=== PATIENT | female | born 1940 | race Caucasian/White ===

== ENCOUNTER 2019-12-28 07:54 | Inpatient (IN) | payer MEDICARE, OTHER, SELFPAY ==
[2019-12-28] VITALS (14 sets, daily range): BP systolic 102–127; BP diastolic 68–93; PULSE 68–110; RESP 19–29; TEMP 36.5–36.7; O2SAT 92–96; BMI 18.6
--- NOTE | ~2019-12-28 | XR_ITS ---
EXAMINATION: XR chest 2V DATE: 12/28/2019 08:50 INDICATION: Cough. Dyspnea. TECHNIQUE: Frontal and lateral views of the chest were obtained. COMPARISON: None. FINDINGS: The patient is rotated to her right. There are airspace opacities at left lung base. There is a small left pleural effusion. No pneumothorax. The heart size is normal. A burst fracture and a c ompression fracture of mid thoracic spine are likely chronic. IMPRESSION: 1. Airspace opacities at left lung base, consistent with atelectasis versus pneumonia. 2. Small left pleural effusion. Reviewed, dictated and finalized at location [facility] IMPRESSION: 1. Airspace opacities at left lung base, consistent with atelectasis versus pne umonia. 2. Small left pleural effusion.
--- NOTE | ~2019-12-28 | XR_ITS ---
EXAMINATION: XR chest 2V EXAM DATE: 01/02/2020 16:25 INDICATION: Follow-up pneumonia, respiratory failure. TECHNIQUE: Frontal and lateral projections of the chest obtained and reviewed. Comparison is made to prior examination from 12/28/2019. FINDINGS: Moderate-sized gastroesophageal hiatal hernia. There is adjacent atelectasis. Left basilar pneumonia also possible. There is moderate left pleural effusion. Slight interval increase in the ple ural effusion compared to prior study. Mild cardiomegaly and mild hyperinflation. No pneumothorax. Th ere is aortic arterial sclerosis. The bones are osteopenic. There are bony degenerative changes. Mil d to moderate mid thoracic compression fractures which appear chronic. IMPRESSION: 1. Moderate left pleural effusion, slight interval increase, adjacent atelectasis and possibly pneum onia. 2. Moderate hiatal hernia. Reviewed, dictated and finalized at location A. NESS INFORMATION CONSULTANT IMPRESSION: 1. Moderate left pleural effusion, slight interval increase, adjacent atelecta sis and possibly pneumonia. 2. Moderate hiatal hernia.
--- NOTE | 2019-12-28 07:59 | ED.SOB ---
HPI - SOB/Dyspnea General Chief Complaint: Shortness of Breath/Dyspnea Stated Complaint: sob Time Seen by Provider: 12/28/19 08:02 Source: patient Mode of arrival: EMS Limitations: no limitations History of Present Illness HPI Narrative: A 79 y/o female presents to the ED, via EMS, with c/o SOB. Pt states that the SOB started this morning and has been constant since. She has a PMHx of lung cancer and COPD and notes that she has had similar episodes of SOB. Pt is on home oxygen as needed. She reports congestion, but denies cough, N/V/D, ABD pain, fever, weakness, fatigue, and CP. Pt denies any use of steroids. She is currently on Eliquis for AFib and is diagnosed with dementia. MD elicited complaint: shortness of breath Pertinent past history: COPD and other (Lung cancer) Onset (ago): hour(s) (This morning) Timing: constant Severity: similar to previous episodes Known history of: COPD and other (Lung cancer) Associated symptoms: chest congestion Treatment prior to arrival: oxygen Related Data Home Medications Medication Instructions Recorded Confirmed albuterol sulfate 12/28/19 apixaban [Eliquis] mg 12/28/19 atorvastatin 10 mg PO DAILY 12/28/19 budesonide-formoterol [Symbicort] 2 puff INHALATION Q12H 12/28/19 buspirone mg 12/28/19 calcium carbonate-vitamin D3 tablet PO 12/28/19 [Calcium 600 + D(3)] cholecalciferol (vitamin D3) unit 12/28/19 [Vitamin D3] famotidine 12/28/19 fluticasone propionate INTRANASAL 12/28/19 guaifenesin mg 12/28/19 ipratropium-albuterol ml INHALATION 12/28/19 levothyroxine 12/28/19 melatonin mg 12/28/19 metoprolol tartrate 12.5 12/28/19 montelukast mg 12/28/19 multivit with min-folic acid mg PO 12/28/19 [Adult One Daily Multivitamin] quetiapine 12/28/19 simvastatin mg 12/28/19 Allergies Allergy/AdvReac Type Severity Reaction Status Date / Time alendronate sodium Allergy Unknown Verified 12/28/19 08:08 [From Fosamax] aspirin Allergy Unknown Verified 12/28/19 08:08 flunisolide [From Aerobid] Allergy Unknown Verified 12/28/19 08:08 levofloxacin Allergy Unknown Verified 12/28/19 08:08 Penicillins Allergy Unknown Verified 12/28/19 08:08 Review of Systems Review of Systems: Narrative: CONSTITUTIONAL: Denies fever ENT: Denies rhinorrhea, sore throat, or otalgia. Reports congestion. CARDIOVASCULAR: Denies chest pain, palpitations, or edema. RESPIRATORY: Denies cough. Reports dyspnea. GASTROINTESTINAL: Denies abdominal pain, nausea, vomiting, or diarrhea. GENITOURINARY: Denies dysuria or hematuria. SKIN: Denies rash or itching. MUSCULOSKELETAL: Denies back pain, joint pain, or myalgia. NEUROLOGIC: Denies headache, numbness, or weakness. Patient has dementia, able to provide some history and review of systems. All systems reviewed & are unremarkable except as noted in HPI and below PMFSH Past Medical History Medical History (Updated 12/28/19 @ 09:34 by Vianney Pace MD) Afib COPD (chronic obstructive pulmonary disease) Dementia Hypothyroid Lung cancer Osteoporosis Surgical History Surgical History (Updated 12/28/19 @ 08:20 by Yessi Mcdonald) Surgical history unknown Social History Social History (Updated 12/28/19 @ 08:21 by Yessi Mcdonald) Smoking status: Unknown if ever smoked Gender identity (if verbalized by the patient): Female Exam Narrative: Exam Narrative: GENERAL: Thin, awake, alert HEAD: Normocephalic, atraumatic. EYES: PERRLA and EOMI. ENT: Nares clear, no rhinorrhea or epistaxis. Mucous membranes dry NECK: Supple. CHEST: Tachypneic. Use of accessory muscles to breathe. Decreased breath sounds in the bilateral lower lobes. Very course breath sounds on left. Moderate respiratory distress. HEART tachycardic rate, regular rhythm.. No murmur heard. Normal peripheral pulses. ABDOMEN: Soft, nontender, nondistended, normal active bowel sounds. EXTREMITIES: Normal range of motion. No edema. SKIN: Warm, dry, pale NEURO: No focal def
--- NOTE | 2019-12-28 08:03 | ECG_ITS ---
Measurements Intervals [place] Rate: 101 P: 88 KS: 148 QRS: 93 QRSD: 86 T: 50 QT: 355 QTc: 461 Interpretive Statements SINUS TACHYCARDIA RIGHT AXIS DEVIATION INCOMPLETE RIGHT BUNDLE BRANCH BLOCK DELAYED PRECORDIAL R/S TRANSITION BORDERLINE T WAVE ABNORMALITY- ANTERIOR LEADS BORDERLINE ECG Electronically Signed On 12-28-2019 9:17:36 LAST CODE STRIPER by Jeremy Samuel D.O.
--- NOTE | 2019-12-28 08:03 | PC.NURSE ---
Placed on 2 Li NC at this time for pulse ox 90% on room air.
[2019-12-28 08:22] LABS: Basophils Absolute Auto 0.1 K/mm3 (0.0-0.1); Basophils Percent Auto 1.5 % (0.2-1.2); Eosinophils Absolute Auto 2.4 K/mm3 (0-0.3); Eosinophils Percent Auto 32.5 % (0-4.4); Hematocrit 37.6 % (37.0-47.0); Hemoglobin 12.3 g/dL (12.0-15.0); Immature Granulocyte Absolute 0.02 K/mm3 (0.00-0.031); Immature Granulocyte Percent A 0.3 % (0-0.5); Lymphocytes Absolute Auto 1.41 K/mm3 (0.9-3.2); Lymphocytes Percent Auto 19.2 % (18.3-44.2); Mean Corpuscular HGB Conc 32.7 g/dl (32-36); Mean Corpuscular Hemoglobin 33.2 pg (26-34); Mean Corpuscular Volume 101.3 fl (80-100); Mean Platelet Volume 11.2 fl (7.4-10.4); Monocytes Absolute Auto 0.9 K/mm3 (0.1-0.6); Monocytes Percent Auto 11.7 % (2.6-8.5); Neutrophils Absolute Auto 2.6 K/mm3 (1.3-6.7); Neutrophils Percent Auto 34.8 % (45.5-73.1); Platelet Count Result 191 k/mm3 (150-375); Red Blood Count 3.71 M/mm3 (4.2-5.4); Red Cell Distribution Width 13.6 % (11.5-14.5); White Blood Count 7.4 K/mm3 (4.5-10.0)
[2019-12-28] MEDS: Please add drug allergy info to patient profile. 1 EACH XX (08:24)
[2019-12-28] MEDS: methylPREDNISolone SOD SUCC 125 MG VIAL IV PUSH (08:27)
[2019-12-28] MEDS: SODIUM CHLORIDE 0.9% IV 1,000 ML 999 ML IV CONT ×2 (08:28→09:44)
[2019-12-28] MEDS: ALBUTEROL SULFATE NEB 2.5 MG/0.5 ML INH 5 MG INHALATION ×3 (08:31→22:49)
[2019-12-28 08:32] LABS: Blood Urea Nitrogen 22 mg/dL (7-17); Calcium 9.2 mg/dL (8.4-10.2); Carbon Dioxide 28 mmol/L (22-30); Chloride 106 mmol/L (98-107); Estimated Glomerular Filt Rate > 60; Glucose 97 mg/dL (65-105); Sodium 140 mmol/L (137-145)
[2019-12-28] MEDS: IPRATROPIUM BR 0.02% INH SOLN 0.5 MG/2.5 ML VIAL 1 MG INHALATION (08:32)
[2019-12-28 08:36] LABS: Alveolar/Arterial O2 Gradient 85.8 mmHg; Base Excess ABG 0.4 mEq/l (+/-2.0); Carboxyhemoglobin 0.2 % THb (0-2.0); Device NASAL CANNULA; Fractional Inspired Oxygen 28 %; HCO3 ABG 24.4 mEq/l (22.0-26.0); Methemoglobin ABG 0.1 %THb (0-1.5); Oxygen Content ABG 16.4 %vol (16.0-22.0); Oxygen Saturation ABG 94.6 % (95.0-100.0); Oxyhemoglobin 93.3 % THb (90.0-100.0); PCO2 ABG 37.2 mmHg (35.0-45.0); PO2 ABG 69.9 mmHg (80.0-100.0); Reduced Hemoglobin 6.4 %THb (0-5.0); Site Drawn RIGHT BRACHIAL; Total Hemoglobin 12.5 g/dL (12.0-18.0); pH ABG 7.435 (7.350-7.450)
[2019-12-28 10:02] LABS: Lactic Acid Reflex 1.1 mmol/L (0.7-2.1)
--- NOTE | 2019-12-28 11:10 | ADMGEN ---
This patient, Lana Evans, was admitted to [facility] Surg Room 332-01. Patient/family oriented to hospital policies and general routines including ID bracelet, bed and alarms, visiting hours, pain management, procedures, bathroom and other care routines, personal items, smoking policy, room service/diet, and visiting hours. Valuables list has been completed. Information on how to activate the Rapid Response Team has been discussed. Patient/Family are encouraged to report perceived risks to care and to ask questions if they do not understand what they are told or what they should do.
--- NOTE | 2019-12-28 14:39 | PM.IMHP ---
H&P: HPI History of Present Illness Chief complaint: COPD exacerbation/Pneumonia Narrative: Lana Evans is a 79 year old female who resides at [facility]. The patient has a history of COPD. She has dementia and has difficulty answering questions. The patient tells me she uses oxygen p.r.n. it was ordered at the correction 2-3 liters/minute per nasal cannula p.r.n. to keep sats greater than 90%. The patient stated that she did use nebulizers and inhalers as prescribed. However the patient is a very poor historian. It looks like on 12/03/2019 the patient was prescribed a Z-Ha and ordered DuoNebs. Most of the information was obtained from her records. Patient is a DNR with [facility] treatment. According to ER records the patient has a history of lung cancer. She also has AFib and is on Eliquis. She denies any fevers chills. She had shortness of breath that started since this morning. Patient has oxygen on at 3 L per nasal cannula. Patient was started on azithromycin Rocephin. She was given IV fluids. She was given neb treatments in the emergency room. Her white count is normal. Patient's chest x-ray was read as airspace opacities at the left lung base, consistent with atelectasis versus pneumonia. Small left pleural effusion. Upon reviewing her chest x-ray myself it looks like there is some consolidation in the mid to lower lobe on the right. However this could possibly be due to her history cancers well possibly scarring. the consolidation a left looks very minimal. She is without fever chills and no white count. Dated of service 12/28/2019. Review of Systems Review of Systems: Narrative: The patient has a history of dementia. Her memory is poor. She can't even recall that she is at [facility]. She cannot recall when her treatment for lung cancer was. She stated that she receive treatment [facility] in [place] because that is where she lived. Patient does agree that she is short of breath. She agrees that she does have COPD and wears oxygen. She recalls using nebulizer treatments at times but does not recall using it today. All systems reviewed & are unremarkable except as noted in HPI and below Constitutional: Constitutional: Reports as per HPI and Reports no additional constitutional complaints Eyes: Eyes: Reports as per HPI and Reports no additional eye complaints ENT: Reports system reviewed and no additional complaints, except as documented and Reports Normal hearing present Cardiovascular: Cardiovascular: Reports no additional cardiovascular complaints Respiratory: Respiratory: Reports no additional respiratory complaints and Reports no additional respiratory complaints Gastrointestinal: Gastrointestinal: Reports as per HPI and Reports no additional gastrointestinal complaints Musculoskeletal: Musculoskeletal: Reports no additional musculoskeletal complaints Integumentary/Breasts: Skin/Breast: Reports system reviewed and no additional complaints, except as docu and Reports as per HPI Neurologic: Reports system reviewed and no additional complaints, except as documented, Reports as per HPI and Reports Normal hearing present Psychiatric: Psychiatric: Reports no additional psychiatric complaints and Reports as per HPI Endocrine: Endocrine: Reports no additional endocrine complaints Hematologic/Lymphatic: Hematologic/Lymphatic: Reports no additional hematologic/lymphatic complaints Allergic/Immunologic: Allergic/Immunologic: Reports no additional allergic/immunologic complaints PMFSH Past Medical History Medical History (Updated 12/28/19 @ 14:59 by Debbie Hyman NP) Afib Anxiety COPD (chronic obstructive pulmonary disease) Dementia Hyperlipidemia Hypothyroid Lung cancer Osteoporosis Surgical History Surgical History (Updated 12/28/19 @ 14:48 by Debbie Hyman NP) H/O bilateral cataract extraction Family History Family History (Updated 12/28/19
[2019-12-28] MEDS: methylPREDNISolone SOD SUCC 125 MG VIAL 60 MG IV PUSH ×2 (15:31→19:17)
[2019-12-28] MEDS: IPRATROPIUM BR 0.02% INH SOLN 0.5 MG/2.5 ML VIAL INHALATION ×2 (15:39→22:49)
[2019-12-28] MEDS: ATORVASTATIN 10 MG TABLET PO (15:41)
[2019-12-28] MEDS: APIXABAN 5 MG TABLET PO (16:22)
[2019-12-28] MEDS: LEVOTHYROXINE SODIUM 112 MCG TABLET PO (17:14)
[2019-12-28] MEDS: FAMOTIDINE 20 MG TABLET PO (17:14)
[2019-12-28] MEDS: METOPROLOL TARTRATE 12.5 MG TABLET PO (17:14)
[2019-12-28] MEDS: QUEtiapine FUMARATE 25 MG TABLET PO (17:15)
[2019-12-28] MEDS: GUAIFENESIN/DEXTROMETHORPHAN 10 ML UDC PO (17:15)
[2019-12-28] MEDS: MELATONIN 3 MG TABLET PO (21:57)
[2019-12-28] MEDS: LORAZEPAM INJ 2 MG/ML VIAL 0.5 MG IV PUSH (22:02)
[2019-12-29] VITALS (11 sets, daily range): BP systolic 92–139; BP diastolic 50–76; PULSE 79–115; RESP 18–22; TEMP 36.8–37.2; O2SAT 96–98
[2019-12-29] MEDS: methylPREDNISolone SOD SUCC 125 MG VIAL 60 MG IV PUSH ×4 (00:15→16:35)
[2019-12-29] MEDS: ALBUTEROL SULFATE NEB 2.5 MG/0.5 ML INH 5 MG INHALATION ×3 (02:10→15:36)
[2019-12-29] MEDS: IPRATROPIUM BR 0.02% INH SOLN 0.5 MG/2.5 ML VIAL INHALATION ×3 (02:10→15:36)
--- NOTE | 2019-12-29 06:00 | ECG_ITS ---
Measurements Intervals [place] Rate: 100 P: 78 GA: 146 QRS: 82 QRSD: 89 T: 44 QT: 345 QTc: 445 Interpretive Statements SINUS TACHYCARDIA VENTRICULAR PREMATURE COMPLEX DELAYED PRECORDIAL R/S TRANSITION BORDERLINE T WAVE ABNORMALITY- ANTERIOR LEADS BASELINE ARTIFACT- V4 BORDERLINE ECG Electronically Signed On 12-29-2019 9:30:34 SALES REPRESENTATIVE [employer] by Jeremy Samuel D.O.
[2019-12-29 06:22] LABS: Basophils Percent Auto 0.1 % (0.2-1.2); Hematocrit 32.4 % (37.0-47.0); Hemoglobin 10.8 g/dL (12.0-15.0); Immature Granulocyte Absolute 0.04 K/mm3 (0.00-0.031); Immature Granulocyte Percent A 0.4 % (0-0.5); Lymphocytes Percent Auto 9.2 % (18.3-44.2); Mean Corpuscular HGB Conc 33.3 g/dl (32-36); Mean Corpuscular Hemoglobin 33.2 pg (26-34); Mean Corpuscular Volume 99.7 fl (80-100); Mean Platelet Volume 11.6 fl (7.4-10.4); Monocytes Absolute Auto 0.6 K/mm3 (0.1-0.6); Monocytes Percent Auto 6.6 % (2.6-8.5); Neutrophils Absolute Auto 8.2 K/mm3 (1.3-6.7); Neutrophils Percent Auto 83.7 % (45.5-73.1); Platelet Count Result 162 k/mm3 (150-375); Red Blood Count 3.25 M/mm3 (4.2-5.4); Red Cell Distribution Width 13.7 % (11.5-14.5); White Blood Count 9.7 K/mm3 (4.5-10.0)
[2019-12-29 06:42] LABS: Alanine Aminotransferase 17 U/L (4-35); Albumin Level 3.2 g/dL (3.5-5.1); Alkaline Phosphatase 62 U/L (38-126); Aspartate Amino Transferase 23 U/L (14-36); Bilirubin,Total 0.1 mg/dL (0.2-1.3); Blood Urea Nitrogen 18 mg/dL (7-17); Calcium 8.6 mg/dL (8.4-10.2); Carbon Dioxide 24 mmol/L (22-30); Chloride 104 mmol/L (98-107); Estimated CRCL calculation 53 ml/min; Estimated Glomerular Filt Rate > 60; Glucose 126 mg/dL (65-105); Potassium 4.2 mmol/L (3.4-5.0); Sodium 139 mmol/L (137-145)
[2019-12-29] MEDS: LEVOTHYROXINE SODIUM 112 MCG TABLET PO (07:30)
[2019-12-29] MEDS: THERAPEUTIC MULTIVITAMINS/MINERALS TAB (*BKC) 1 TABLET PO (09:22)
[2019-12-29] MEDS: QUEtiapine FUMARATE 25 MG TABLET PO ×2 (09:22→16:33)
[2019-12-29] MEDS: MONTELUKAST SODIUM 10 MG TABLET PO (09:22)
[2019-12-29] MEDS: FAMOTIDINE 20 MG TABLET PO ×2 (09:22→16:33)
[2019-12-29] MEDS: METOPROLOL TARTRATE 12.5 MG TABLET PO ×2 (09:22→16:33)
[2019-12-29] MEDS: SIMETHICONE 125 MG CHEW TAB 250 MG PO (09:22)
[2019-12-29] MEDS: ATORVASTATIN 10 MG TABLET PO (09:22)
[2019-12-29] MEDS: FLUTICASONE PROPIONATE 0.05% NA SPR 16 GM BTL (*BKC) 1 SPRAY NASAL (09:22)
[2019-12-29] MEDS: APIXABAN 5 MG TABLET PO ×2 (09:22→16:32)
[2019-12-29] MEDS: CHOLECALCIFEROL 1,000 UNIT TABLET 8000 UNITS PO (09:23)
--- NOTE | 2019-12-29 15:33 | PCCCNOTE ---
On 12/29/19, the student, [ Arely Mullins], provided care and completed [facility] documentation on this patient. I have reviewed the student's documentation and agree with the findings.
[2019-12-29] MEDS: LORAZEPAM 0.5 MG TABLET PO (16:31)
[2019-12-29] MEDS: busPIRone HCL 2.5 MG TABLET PO (16:32)
[2019-12-29] MEDS: busPIRone HCL 5 MG TABLET PO (16:32)
--- NOTE | 2019-12-29 17:53 | PM.IMPN ---
Progress Note: A&P Assessment and Plan (1) Respiratory failure: Qualifiers: Chronicity: acute Respiratory failure complication: hypoxia Qualified Code(s): J96.01 - Acute respiratory failure with hypoxia Code(s): J96.90 - Respiratory failure, unspecified, unspecified whether with hypoxia or hypercapnia Status: Acute Assessment and Plan: acute on chronic. The patient [facility] Today she is on it consistently at 4 L per nasal cannula. Pulse ox was 96%. The patient is being treated for pneumonia as well COPD. She is currently receiving steroids and nebulizer treatments. Check BNP also.. (2) Pneumonia: Qualifiers: Laterality: bilateral Lung location: unspecified part of lung Pneumonia type: due to unspecified organism Qualified Code(s): J18.9 - Pneumonia, unspecified organism Code(s): J18.9 - Pneumonia, unspecified organism Status: Acute Assessment and Plan: Patient was placed on antibiotics back in October. I am not sure if this is resolving pneumonia or scar tissue. The pneumonia does not appear to be well-defined on the chest x-ray. She has no fever no chills no white count. She has has a nonproductive cough. I am not totally convinced that this is pneumonia however the patient was empirically placed on Rocephin and a azithromycin. Continue with DuoNebs. Sputum cultures are pending. As are blood cultures (3) COPD (chronic obstructive pulmonary disease): Code(s): J44.9 - Chronic obstructive pulmonary disease, unspecified Status: Chronic Assessment and Plan: Continue with Solu-Medrol nebs. She is on antibiotics. Continue Symbicort. Continue with Singulair (4) Afib: Code(s): I48.91 - Unspecified atrial fibrillation Status: Chronic Assessment and Plan: Continue with Eliquis and metoprolol rate sounds regular at this time. (5) Hyperlipidemia: Code(s): E78.5 - Hyperlipidemia, unspecified Status: Chronic Assessment and Plan: Continue with Lipitor (6) Anxiety: Code(s): F41.9 - Anxiety disorder, unspecified Status: Chronic Assessment and Plan: BuSpar and p.r.n. lorazepam (7) Hypothyroid: Code(s): E03.9 - Hypothyroidism, unspecified Status: Chronic Assessment and Plan: Continue with levothyroxine and check thyroid levels. (8) Dementia: Code(s): F03.90 - Unspecified dementia without behavioral disturbance Status: Chronic Assessment and Plan: Continue with Seroquel the and will check B12 level with MCV at 100 Subjective Date/time seen: 12/29/19 17:53 Interval history: Date of visit 12/28. 79-year-old demented white female with COPD admitted with acute on chronic respiratory failure, COPD exacerbation and possible pneumonia. She states she is doing somewhat better today. Hard to assess with her degree of dementia Exam Narrative: Exam Narrative: Blood pressure 138/70 pulse is 90 saturating 96% on 4 L respirations 16 per minute afebrile Pupil equal reactive to light sclera anicteric Lungs prolonged expiratory phase very faint end expiratory wheezes in cannot hear any definite consolidation Abdomen soft nontender Extremities without edema good distal pulses Neuro alert pleasant cooperative but disoriented . Person only orientation Objective Data Vital Signs Vital Signs: Vital Signs - 24 hr 12/28/19 22:00 12/28/19 22:50 12/28/19 22:57 Temperature 36.6 C Pulse Rate 68 93 93 Respiratory Rate 20 20 20 Blood Pressure 125/68 Pulse Oximetry 93 95 12/28/19 22:58 12/29/19 02:11 12/29/19 02:20 Temperature Pulse Rate 89 79 80 Respiratory Rate 20 20 20 Blood Pressure Pulse Oximetry 12/29/19 06:00 12/29/19 09:22 12/29/19 10:21 Temperature 36.8 C Pulse Rate 80 80 100 Respiratory Rate 20 22 H Blood Pressure 102/54 L Pulse Oximetry 98 96 12/29/19 10:29 12/29/19 14:00 12/29/19
[2019-12-29] MEDS: MELATONIN 3 MG TABLET PO (21:52)
[2019-12-30] VITALS (11 sets, daily range): BP systolic 113–118; BP diastolic 66–75; PULSE 88–107; RESP 17–22; TEMP 36–36.6; O2SAT 93–98; BMI 18.6
[2019-12-30] MEDS: methylPREDNISolone SOD SUCC 125 MG VIAL 60 MG IV PUSH ×4 (00:30→16:51)
--- NOTE | 2019-12-30 01:17 | PCRCNOTE ---
Window of time for administration has passed. See next scheduled administration.
[2019-12-30] MEDS: LORAZEPAM INJ 2 MG/ML VIAL 0.5 MG IV PUSH (01:19)
[2019-12-30] MEDS: ALBUTEROL SULFATE NEB 2.5 MG/0.5 ML INH 5 MG INHALATION ×4 (04:13→21:15)
[2019-12-30] MEDS: IPRATROPIUM BR 0.02% INH SOLN 0.5 MG/2.5 ML VIAL INHALATION ×4 (04:13→21:15)
[2019-12-30] MEDS: LEVOTHYROXINE SODIUM 112 MCG TABLET PO (05:54)
[2019-12-30 06:34] LABS: NT Pro B Type Natriuretic Pept 1490 PG/ML (5-100)
[2019-12-30] MEDS: ATORVASTATIN 10 MG TABLET PO (08:59)
[2019-12-30] MEDS: MONTELUKAST SODIUM 10 MG TABLET PO (08:59)
[2019-12-30] MEDS: CHOLECALCIFEROL 1,000 UNIT TABLET 8000 UNITS PO (08:59)
[2019-12-30] MEDS: FLUTICASONE PROPIONATE 0.05% NA SPR 16 GM BTL (*BKC) 1 SPRAY NASAL (08:59)
[2019-12-30] MEDS: busPIRone HCL 2.5 MG TABLET PO (09:00)
[2019-12-30] MEDS: QUEtiapine FUMARATE 25 MG TABLET PO ×2 (09:00→16:53)
[2019-12-30] MEDS: FAMOTIDINE 20 MG TABLET PO ×2 (09:00→16:52)
[2019-12-30] MEDS: SIMETHICONE 125 MG CHEW TAB 250 MG PO (09:00)
[2019-12-30] MEDS: THERAPEUTIC MULTIVITAMINS/MINERALS TAB (*BKC) 1 TABLET PO (09:00)
[2019-12-30] MEDS: APIXABAN 5 MG TABLET PO ×2 (09:01→16:52)
[2019-12-30] MEDS: METOPROLOL TARTRATE 12.5 MG TABLET PO ×2 (09:01→16:52)
[2019-12-30] MEDS: busPIRone HCL 5 MG TABLET PO (11:54)
--- NOTE | 2019-12-30 15:16 | ECHO_ITS ---
Patient Info Name: Lana Evans Age: 79 years : 1940 Gender: Female Ht: 65 in Wt: 111 lbs BSA: 1.51 m2 HR: 97 bpm BP: 118 / 75 mmHg Technical Quality: Good Exam Date: 12/30/2019 2:48 PM Exam Location: [facility] Pul[facility] Patient Status: Inpatient Admit Date: 12/28/2019 Staff Ordering Physician: Liang Vanegas MD Steward/Stewardess Third: Bill Maher, LEILA, RT Attending Provider: Estrella Hester MD Referring Physician: [facility] ; Exam Type: CA echo doppler color flow Study Info Indications R06.02 - Shortness of breath Complete two-dimensional, color flow and Doppler transthoracic echocardiogram is performed. Summary 1. Left ventricular chamber dimension is normal. 2. Left ventricular systolic function is normal, estimated at 60-65%. 3. The left ventricular diastolic function is grade I diastolic dysfunction. 4. E/e' 5 is not elevated. 5. There is mild aortic valve sclerosis. 6. There is trace aortic valve regurgitation. 7. There is mild to moderate tricuspid valve regurgitation. 8. Mild pulmonary hypertension, estimated pulmonary arterial systolic pressure is 43 mmHg. 9. There is trace pulmonic regurgitation. 10. Dilated inferior vena cava with <50% collapse upon inspiration consistent with normal right atrial pressure, 15 mmHg. Left Ventricle E/e' 5 is not elevated. Left ventricular chamber dimension is normal. Left ventricular systolic function is normal, estimated at 60-65%. The left ventricular diastolic function is grade I diastolic dysfunction. Right Ventricle Right ventricular chamber dimension is normal. Right ventricular systolic function is normal. Left Atria Left atrial chamber dimension is normal. Right Atria Right atrial chamber dimension is normal. Aortic Valve The aortic valve is trileaflet. There is mild aortic valve sclerosis. There is no aortic valve stenosis. There is trace aortic valve regurgitation. Pulmonic Valve There is trace pulmonic regurgitation. Mitral Valve There is no mitral valve stenosis. There is no mitral valve regurgitation. Tricuspid Valve There is mild to moderate tricuspid valve regurgitation. Mild pulmonary hypertension, estimated pulmonary arterial systolic pressure is 43 mmHg. Pericardium/Pleural There is no pericardial effusion. Inferior Vena Cava Dilated inferior vena cava with <50% collapse upon inspiration consistent with normal right atrial pressure, 15 mmHg. Aorta The aortic root size at the sinus of Valsalva is normal. Left Ventricular Outflow Tract Name Value Normal LVOT 2D LVOT Diameter 2.1 cm LVOT Doppler LVOT Peak Gradient 6 mmHg LVOT Mean Gradient 3 mmHg LVOT VTI 22 cm LVOT VTI/AV VTI Ratio 0.7 LVOT Stroke Volume 73 ml Pulmonic Valve Name Value Normal PV Doppler -
[2019-12-30] MEDS: polyethylene glycoL 3350 17 GM POWD.PACK PO (16:49)
--- NOTE | 2019-12-30 18:00 | PM.IMPN ---
Progress Note: A&P Assessment and Plan (1) Respiratory failure: Qualifiers: Chronicity: acute Respiratory failure complication: hypoxia Qualified Code(s): J96.01 - Acute respiratory failure with hypoxia Code(s): J96.90 - Respiratory failure, unspecified, unspecified whether with hypoxia or hypercapnia Status: Acute Assessment and Plan: Acute on chronic. [facility] Continue steroids, nebs, antibx (2) Pneumonia: Qualifiers: Laterality: bilateral Lung location: unspecified part of lung Pneumonia type: due to unspecified organism Qualified Code(s): J18.9 - Pneumonia, unspecified organism Code(s): J18.9 - Pneumonia, unspecified organism Status: Acute Assessment and Plan: Treating empirically Continue steroids, nebs, antibx (3) COPD (chronic obstructive pulmonary disease): Qualifiers: COPD type: COPD with acute lower respiratory infection Qualified Code(s): J44.0 - Chronic obstructive pulmonary disease with (acute) lower respiratory infection Code(s): J44.9 - Chronic obstructive pulmonary disease, unspecified Status: Chronic Assessment and Plan: Continue steroids, nebs, antibx (4) Afib: Qualifiers: Atrial fibrillation type: unspecified Qualified Code(s): I48.91 - Unspecified atrial fibrillation Code(s): I48.91 - Unspecified atrial fibrillation Status: Chronic Assessment and Plan: Continue with Eliquis and metoprolol (5) Hypothyroid: Qualifiers: Hypothyroidism type: acquired Qualified Code(s): E03.9 - Hypothyroidism, unspecified Code(s): E03.9 - Hypothyroidism, unspecified Status: Chronic Assessment and Plan: Continue with levothyroxine (6) Dementia: Qualifiers: Dementia type: unspecified type Dementia behavioral disturbance: with behavioral disturbance Qualified Code(s): F03.91 - Unspecified dementia with behavioral disturbance Code(s): F03.90 - Unspecified dementia without behavioral disturbance Status: Chronic Assessment and Plan: Continue with Seroquel B12 457 TSH 1.33 Subjective Date/time seen: 12/30/19 18:00 Interval history: Eating well. Denied pain. Confused and little agitated earlier. Much more calm now. Review of Systems Review of Systems: ROS unobtainable: unobtainable due to mental status Exam Narrative: Exam Narrative: HEENT: EOMI, PERRL, pharyngeal mucosa pink and intact NECK: No JVD, adenopathy, or thyromegaly CHEST: Clear to auscultation. Decreased BS throughout HEART: NL S1/S2, regular, no murmur ABDOMEN: BS+, soft, nontender, no mass, no bruits EXTREMITIES: No cyanosis, edema, or clubbing NEUROLOGIC: CN intact and symmetric to inspection. MUSCULOSKELETAL: Tone and strength symmetric. PSYCH: Alert. Oriented to person only but pleasant and coopertive Objective Data Vital Signs Vital Signs: Vital Signs - 24 hr 12/29/19 22:00 12/30/19 06:00 12/30/19 08:05 Temperature 98.4 F 97.8 F Pulse Rate 115 H 105 H 105 H Respiratory Rate 20 18 18 Blood Pressure 92/50 L 118/75 Pulse Oximetry 98 96 93 12/30/19 08:17 12/30/19 09:01 12/30/19 14:00 Temperature 97.9 F Pulse Rate 107 H 96 92 Respiratory Rate 18 17 Blood Pressure 115/66 Pulse Oximetry 98 12/30/19 14:14 12/30/19 14:23 12/30/19 16:52 Temperature Pulse Rate 93 93 88 Respiratory Rate 22 H 18 Blood Pressure Pulse Oximetry Intake/Output Intake/Output: Intake & Output 12/27/19 12/28/19 12/29/19 12/30/19 23:59 23:59 23:59 23:59 Intake Total 1830 1250 1090 Output Total 1200 400 Balance 1830 50 690 Meds/Results Medications: Active Medications Generic Name Dose Route Start Last Admin Trade Name Frankyq PRN Reason Stop Dose Admin Albuterol 5 mg 12/28/19 14:00 12/30/19 14:13 Albuterol Sulf Neb 2.5mg/0.5ml INHALATION 5 mg Q6HRT OMID Administration Apixa
[2019-12-30] MEDS: MELATONIN 3 MG TABLET PO (20:11)
[2019-12-31] VITALS (13 sets, daily range): BP systolic 97–122; BP diastolic 54–61; PULSE 69–108; RESP 16–20; TEMP 36.4–36.8; O2SAT 94–100
[2019-12-31] MEDS: methylPREDNISolone SOD SUCC 125 MG VIAL 60 MG IV PUSH ×3 (00:01→11:40)
[2019-12-31] MEDS: IPRATROPIUM BR 0.02% INH SOLN 0.5 MG/2.5 ML VIAL INHALATION ×4 (01:20→21:21)
[2019-12-31] MEDS: ALBUTEROL SULFATE NEB 2.5 MG/0.5 ML INH 5 MG INHALATION ×4 (01:20→21:20)
[2019-12-31] MEDS: LEVOTHYROXINE SODIUM 112 MCG TABLET PO (05:36)
[2019-12-31] MEDS: FLUTICASONE PROPIONATE 0.05% NA SPR 16 GM BTL (*BKC) 1 SPRAY NASAL (09:27)
[2019-12-31] MEDS: ATORVASTATIN 10 MG TABLET PO (09:28)
[2019-12-31] MEDS: CHOLECALCIFEROL 1,000 UNIT TABLET 8000 UNITS PO (09:28)
[2019-12-31] MEDS: FAMOTIDINE 20 MG TABLET PO ×2 (09:29→17:29)
[2019-12-31] MEDS: QUEtiapine FUMARATE 25 MG TABLET PO ×2 (09:29→17:29)
[2019-12-31] MEDS: APIXABAN 5 MG TABLET PO ×2 (09:29→17:29)
[2019-12-31] MEDS: METOPROLOL TARTRATE 12.5 MG TABLET PO ×2 (09:29→17:30)
[2019-12-31] MEDS: MONTELUKAST SODIUM 10 MG TABLET PO (09:29)
[2019-12-31] MEDS: THERAPEUTIC MULTIVITAMINS/MINERALS TAB (*BKC) 1 TABLET PO (09:29)
[2019-12-31] MEDS: SIMETHICONE 125 MG CHEW TAB 250 MG PO (09:31)
--- NOTE | 2019-12-31 14:17 | PM.IMPN ---
Progress Note: A&P Assessment and Plan (1) Respiratory failure: Qualifiers: Chronicity: acute Respiratory failure complication: hypoxia Qualified Code(s): J96.01 - Acute respiratory failure with hypoxia Code(s): J96.90 - Respiratory failure, unspecified, unspecified whether with hypoxia or hypercapnia Status: Acute Assessment and Plan: Acute on chronic. Uses p.r.n. oxygen at the [facility]. Continue steroids, nebs, antibx (2) Pneumonia: Qualifiers: Laterality: bilateral Lung location: unspecified part of lung Pneumonia type: due to unspecified organism Qualified Code(s): J18.9 - Pneumonia, unspecified organism Code(s): J18.9 - Pneumonia, unspecified organism Status: Acute Assessment and Plan: Treating empirically Continue steroids, nebs, antibx day 4 (3) COPD (chronic obstructive pulmonary disease): Qualifiers: COPD type: COPD with acute lower respiratory infection Qualified Code(s): J44.0 - Chronic obstructive pulmonary disease with (acute) lower respiratory infection Code(s): J44.9 - Chronic obstructive pulmonary disease, unspecified Status: Chronic Assessment and Plan: Continue steroids, nebs, antibx (4) Afib: Qualifiers: Atrial fibrillation type: unspecified Qualified Code(s): I48.91 - Unspecified atrial fibrillation Code(s): I48.91 - Unspecified atrial fibrillation Status: Chronic Assessment and Plan: Continue with Eliquis and metoprolol (5) Hypothyroid: Qualifiers: Hypothyroidism type: acquired Qualified Code(s): E03.9 - Hypothyroidism, unspecified Code(s): E03.9 - Hypothyroidism, unspecified Status: Chronic Assessment and Plan: Continue with levothyroxine (6) Dementia: Qualifiers: Dementia type: unspecified type Dementia behavioral disturbance: with behavioral disturbance Qualified Code(s): F03.91 - Unspecified dementia with behavioral disturbance Code(s): F03.90 - Unspecified dementia without behavioral disturbance Status: Chronic Assessment and Plan: Continue with Seroquel B12 457 TSH 1.33 Subjective Date/time seen: 12/31/19 14:17 Interval history: Feels better. Less anxious today. Eating well. Denied pain. SOB with any exertion. Cough. Review of Systems Review of Systems: ROS unobtainable: unobtainable due to mental status Exam Narrative: Exam Narrative: HEENT: EOMI, PERRL, pharyngeal mucosa pink and intact NECK: No JVD, adenopathy, or thyromegaly CHEST: Posterior rhonchi, worse at bases. Decreased BS throughout HEART: NL S1/S2, regular, no murmur ABDOMEN: BS+, soft, nontender, no mass, no bruits EXTREMITIES: No cyanosis, edema, or clubbing NEUROLOGIC: CN intact and symmetric to inspection. MUSCULOSKELETAL: Tone and strength symmetric. PSYCH: Alert. Oriented to person only but pleasant and coopertive Objective Data Vital Signs Vital Signs: Vital Signs - 24 hr 12/30/19 14:23 12/30/19 16:52 12/30/19 21:15 Temperature Pulse Rate 93 88 95 Respiratory Rate 18 20 Blood Pressure Pulse Oximetry 12/30/19 21:25 12/30/19 22:00 12/31/19 01:20 Temperature 96.8 F L Pulse Rate 95 94 93 Respiratory Rate 20 18 20 Blood Pressure 113/71 Pulse Oximetry 94 98 12/31/19 01:30 12/31/19 06:00 12/31/19 08:31 Temperature 98.3 F Pulse Rate 92 69 91 Respiratory Rate 20 16 20 Blood Pressure 114/59 L Pulse Oximetry 100 98 12/31/19 08:38 12/31/19 09:29 Temperature Pulse Rate 91 90 Respiratory Rate 20 Blood Pressure Pulse Oximetry Intake/Output Intake/Output: Intake & Output 12/28/19 12/29/19 12/30/19 12/31/19 23:59 23:59 23:59 23:59 Intake Total 1830 1250 1780 500 Output Total 1200 1175 400 Balance 1830 50 605 100 Meds/Results Medications: Active Medications Generic Name Dose Route Start Last Admin Trade Name Freq PRN Reason Stop Dose Adm
--- NOTE | 2019-12-31 15:15 | PCCCNOTE ---
On 12/31/19, the student, [ Arely Mullins], provided care and completed [facility] documentation on this patient. I have reviewed the student's documentation and agree with the findings.
[2020-01-01] VITALS (15 sets, daily range): BP systolic 119–137; BP diastolic 73–82; PULSE 74–113; RESP 18–20; TEMP 35.8–37.1; O2SAT 94–100
[2020-01-01] MEDS: IPRATROPIUM BR 0.02% INH SOLN 0.5 MG/2.5 ML VIAL INHALATION ×4 (02:14→22:07)
[2020-01-01] MEDS: ALBUTEROL SULFATE NEB 2.5 MG/0.5 ML INH 5 MG INHALATION ×4 (02:14→22:06)
[2020-01-01] MEDS: LEVOTHYROXINE SODIUM 112 MCG TABLET PO (05:41)
[2020-01-01 06:37] LABS: Blood Urea Nitrogen 23 mg/dL (7-17); Calcium 8.5 mg/dL (8.4-10.2); Carbon Dioxide 32 mmol/L (22-30); Chloride 105 mmol/L (98-107); Estimated CRCL calculation 53 ml/min; Estimated Glomerular Filt Rate > 60; Glucose 88 mg/dL (65-105); Sodium 138 mmol/L (137-145)
--- NOTE | 2020-01-01 08:58 | ECG_ITS ---
Measurements Intervals [place] Rate: 99 P: 67 NV: 133 QRS: 46 QRSD: 100 T: 52 QT: 330 QTc: 424 Interpretive Statements SINUS RHYTHM ATRIAL PREMATURE COMPLEX DELAYED PRECORDIAL R/S TRANSITION BORDERLINE T WAVE ABNORMALITY- ANTERIOR LEADS BORDERLINE ECG Electronically Signed On 01-01-2020 9:47:22 EXPERIMENTAL [employer]IC[employer] by Jeremy Samuel D.O.
[2020-01-01] MEDS: APIXABAN 5 MG TABLET PO ×2 (09:06→16:10)
[2020-01-01] MEDS: predniSONE 20 MG TABLET PO (09:07)
[2020-01-01] MEDS: CHOLECALCIFEROL 1,000 UNIT TABLET 8000 UNITS PO (09:07)
[2020-01-01] MEDS: ATORVASTATIN 10 MG TABLET PO (09:07)
[2020-01-01] MEDS: MONTELUKAST SODIUM 10 MG TABLET PO (09:08)
[2020-01-01] MEDS: METOPROLOL TARTRATE 12.5 MG TABLET PO ×2 (09:08→16:10)
[2020-01-01] MEDS: FLUTICASONE PROPIONATE 0.05% NA SPR 16 GM BTL (*BKC) 1 SPRAY NASAL (09:08)
[2020-01-01] MEDS: FAMOTIDINE 20 MG TABLET PO ×2 (09:08→16:10)
[2020-01-01] MEDS: THERAPEUTIC MULTIVITAMINS/MINERALS TAB (*BKC) 1 TABLET PO (09:09)
[2020-01-01] MEDS: QUEtiapine FUMARATE 25 MG TABLET PO ×2 (09:09→16:11)
[2020-01-01] MEDS: SIMETHICONE 125 MG CHEW TAB 250 MG PO (09:09)
[2020-01-01] MEDS: LORAZEPAM INJ 2 MG/ML VIAL 0.5 MG IV PUSH (09:58)
--- NOTE | 2020-01-01 12:39 | PCDIET ---
Nutrition Follow-Up Complete: Increased nutrient needs r/t COPD as evidence by BMI of 18.6 and need for nutritional supplement Maintain intake >75% Supplement acceptance Goal: Goal met. Continue with current goal. Pt current nutrition is Regular level 7 Wt.50.7 kg (no new wt) Bowel Motility: No BM, recommend motility agent Labs Reviewed: BUN 23 Meds Noted: MTV, Vit D, Prednisone, Lipitor, Lopressor, Synthroid, MTV Additional Notes: Good appetite eating 85% average over last five meals. No new wt recorded. Recommend new weight for tracking. No BM since admit. Pt may benefit from motility agent. Recommend magnesium. Pt liking Thrive and eating BID. Thrive provides 9 grams of protein, 24 vitamins and minerals, 6grams of fiber, and 270 kcal per serving. We will continue to monitor PO intake, wt, and BMs every five days.
--- NOTE | 2020-01-01 12:43 | PM.IMPN ---
Progress Note: A&P Assessment and Plan (1) Respiratory failure: Qualifiers: Chronicity: acute Respiratory failure complication: hypoxia Qualified Code(s): J96.01 - Acute respiratory failure with hypoxia Code(s): J96.90 - Respiratory failure, unspecified, unspecified whether with hypoxia or hypercapnia Status: Acute Assessment and Plan: Acute on chronic. Uses p.r.n. oxygen at the custodial. Continue steroids, nebs, antibx (2) Pneumonia: Qualifiers: Laterality: bilateral Lung location: unspecified part of lung Pneumonia type: due to unspecified organism Qualified Code(s): J18.9 - Pneumonia, unspecified organism Code(s): J18.9 - Pneumonia, unspecified organism Status: Acute Assessment and Plan: Treating empirically Continue steroids, nebs, antibx day 5 F/u CXR (3) COPD (chronic obstructive pulmonary disease): Qualifiers: COPD type: COPD with acute lower respiratory infection Qualified Code(s): J44.0 - Chronic obstructive pulmonary disease with (acute) lower respiratory infection Code(s): J44.9 - Chronic obstructive pulmonary disease, unspecified Status: Chronic Assessment and Plan: Continue steroids, nebs, antibx (4) Afib: Qualifiers: Atrial fibrillation type: unspecified Qualified Code(s): I48.91 - Unspecified atrial fibrillation Code(s): I48.91 - Unspecified atrial fibrillation Status: Chronic Assessment and Plan: Continue with Eliquis and metoprolol (5) Hypothyroid: Qualifiers: Hypothyroidism type: acquired Qualified Code(s): E03.9 - Hypothyroidism, unspecified Code(s): E03.9 - Hypothyroidism, unspecified Status: Chronic Assessment and Plan: Continue with levothyroxine (6) Dementia: Qualifiers: Dementia type: unspecified type Dementia behavioral disturbance: with behavioral disturbance Qualified Code(s): F03.91 - Unspecified dementia with behavioral disturbance Code(s): F03.90 - Unspecified dementia without behavioral disturbance Status: Chronic Assessment and Plan: Continue with Seroquel B12 457 TSH 1.33 Subjective Date/time seen: 01/01/20 12:43 Interval history: Feels better. Less anxious today. Eating well. Denied pain. SOB with any exertion. Cough. Exam Narrative: Exam Narrative: HEENT: EOMI, PERRL, pharyngeal mucosa pink and intact NECK: No JVD, adenopathy, or thyromegaly CHEST: Posterior rhonchi at end inspiration, worse at bases. Decreased BS throughout HEART: NL S1/S2, regular, no murmur ABDOMEN: BS+, soft, nontender, no mass, no bruits EXTREMITIES: No cyanosis, edema, or clubbing NEUROLOGIC: CN intact and symmetric to inspection. MUSCULOSKELETAL: Tone and strength symmetric. PSYCH: Alert. Oriented to person only but pleasant and coopertive Objective Data Vital Signs Vital Signs: Vital Signs - 24 hr 12/31/19 14:00 12/31/19 14:27 12/31/19 14:35 Temperature 98.1 F Pulse Rate 108 H 108 H 105 H Respiratory Rate 20 20 20 Blood Pressure 97/61 L Pulse Oximetry 95 12/31/19 17:30 12/31/19 21:22 12/31/19 21:31 Temperature Pulse Rate 84 98 98 Respiratory Rate 18 18 Blood Pressure Pulse Oximetry 94 12/31/19 22:00 01/01/20 02:14 01/01/20 02:26 Temperature 97.6 F Pulse Rate 105 H 74 78 Respiratory Rate 18 18 18 Blood Pressure 122/54 L Pulse Oximetry 98 01/01/20 06:00 01/01/20 08:39 01/01/20 08:40 Temperature 98.0 F Pulse Rate 74 87 Respiratory Rate 18 20 Blood Pressure 134/74 Pulse Oximetry 97 96 01/01/20 08:46 01/01/20 08:59 01/01/20 09:08 Temperature 98.2 F Pulse Rate 80 100 94 Respiratory Rate 20 20 Blood Pressure 137/82 Pulse Oximetry 100 Intake/Output Intake/Output: Intake & Output 12/29/19 12/30/19 12/31/19 01/01/20 23:59 23:59 23:59 23:59 Intake Total 1250 1780 2630 540 Output Total 1200 1175 1200 400 Balance 50 6
[2020-01-01] MEDS: MELATONIN 5 MG TABLET PO (21:06)
[2020-01-02] VITALS (9 sets, daily range): BP systolic 108–114; BP diastolic 63–66; PULSE 74–98; RESP 20; TEMP 36.3–37.1; O2SAT 98–99
[2020-01-02] MEDS: ALBUTEROL SULFATE NEB 2.5 MG/0.5 ML INH 5 MG INHALATION ×3 (03:24→14:59)
[2020-01-02] MEDS: IPRATROPIUM BR 0.02% INH SOLN 0.5 MG/2.5 ML VIAL INHALATION ×3 (03:25→14:59)
[2020-01-02 06:26] LABS: Hematocrit 33.8 % (37.0-47.0); Hemoglobin 11.1 g/dL (12.0-15.0); Mean Corpuscular HGB Conc 32.8 g/dl (32-36); Mean Corpuscular Volume 100.6 fl (80-100); Mean Platelet Volume 11.4 fl (7.4-10.4); Platelet Count Result 147 k/mm3 (150-375); Red Blood Count 3.36 M/mm3 (4.2-5.4); Red Cell Distribution Width 13.9 % (11.5-14.5); White Blood Count 5.3 K/mm3 (4.5-10.0)
[2020-01-02 06:35] LABS: Blood Urea Nitrogen 21 mg/dL (7-17); Calcium 8.2 mg/dL (8.4-10.2); Carbon Dioxide 32 mmol/L (22-30); Chloride 101 mmol/L (98-107); Estimated CRCL calculation 53 ml/min; Estimated Glomerular Filt Rate > 60; Glucose 83 mg/dL (65-105); Potassium 4.3 mmol/L (3.4-5.0); Sodium 135 mmol/L (137-145)
[2020-01-02] MEDS: LEVOTHYROXINE SODIUM 112 MCG TABLET PO (07:01)
[2020-01-02] MEDS: MONTELUKAST SODIUM 10 MG TABLET PO (08:54)
[2020-01-02] MEDS: busPIRone HCL 2.5 MG TABLET PO (08:54)
[2020-01-02] MEDS: ATORVASTATIN 10 MG TABLET PO (08:54)
[2020-01-02] MEDS: CHOLECALCIFEROL 1,000 UNIT TABLET 8000 UNITS PO (08:54)
[2020-01-02] MEDS: busPIRone HCL 5 MG TABLET PO (08:54)
[2020-01-02] MEDS: QUEtiapine FUMARATE 25 MG TABLET PO (08:54)
[2020-01-02] MEDS: SIMETHICONE 125 MG CHEW TAB 250 MG PO (08:54)
[2020-01-02] MEDS: APIXABAN 5 MG TABLET PO (08:54)
[2020-01-02] MEDS: FAMOTIDINE 20 MG TABLET PO (08:55)
[2020-01-02] MEDS: THERAPEUTIC MULTIVITAMINS/MINERALS TAB (*BKC) 1 TABLET PO (08:56)
[2020-01-02] MEDS: METOPROLOL TARTRATE 12.5 MG TABLET PO (08:56)
[2020-01-02] MEDS: predniSONE 20 MG TABLET PO (08:56)
[2020-01-02] MEDS: FLUTICASONE PROPIONATE 0.05% NA SPR 16 GM BTL (*BKC) 1 SPRAY NASAL (08:56)
--- NOTE | 2020-01-02 14:28 | PM.DS ---
DS: Diagnosis Admitting Diagnosis Admitting Diagnosis: Pneumonia, unspecified organism Discharge Diagnosis (1) Respiratory failure: Qualifiers: Chronicity: acute Respiratory failure complication: hypoxia Qualified Code(s): J96.01 - Acute respiratory failure with hypoxia Code(s): J96.90 - Respiratory failure, unspecified, unspecified whether with hypoxia or hypercapnia Status: Acute Assessment and Plan: Acute on chronic. Uses p.r.n. oxygen at the halfway. Continue steroids, nebs, antibx (2) Pneumonia: Qualifiers: Laterality: bilateral Lung location: unspecified part of lung Pneumonia type: due to unspecified organism Qualified Code(s): J18.9 - Pneumonia, unspecified organism Code(s): J18.9 - Pneumonia, unspecified organism Status: Acute Assessment and Plan: Treating empirically Continue steroids, nebs, antibx day 6 (3) COPD (chronic obstructive pulmonary disease): Qualifiers: COPD type: COPD with acute lower respiratory infection Qualified Code(s): J44.0 - Chronic obstructive pulmonary disease with (acute) lower respiratory infection Code(s): J44.9 - Chronic obstructive pulmonary disease, unspecified Status: Chronic Assessment and Plan: Continue steroids, nebs, antibx (4) Afib: Qualifiers: Atrial fibrillation type: unspecified Qualified Code(s): I48.91 - Unspecified atrial fibrillation Code(s): I48.91 - Unspecified atrial fibrillation Status: Chronic Assessment and Plan: Continue with Eliquis and metoprolol (5) Hypothyroid: Qualifiers: Hypothyroidism type: acquired Qualified Code(s): E03.9 - Hypothyroidism, unspecified Code(s): E03.9 - Hypothyroidism, unspecified Status: Chronic Assessment and Plan: Continue with levothyroxine (6) Dementia: Qualifiers: Dementia behavioral disturbance: with behavioral disturbance Dementia type: unspecified type Qualified Code(s): F03.91 - Unspecified dementia with behavioral disturbance Code(s): F03.90 - Unspecified dementia without behavioral disturbance Status: Chronic Assessment and Plan: Continue with Seroquel B12 457 TSH 1.33 DS: Summary Hospital Course Reason for hospitalization: SHORTNESS OF BREATH WITH PNEUMONIA Hospital Course: Admitted with dyspnea. Found to have pulmonary infiltrates. Treated IV ceftriaxone and azithromycin. Slow progress. Hypoxemia dressed with 4 L of oxygen by nasal cannula. She had tight wheezing and rhonchi initially. This gradually improved on the day of discharge she has scattered mild rhonchi. She was tolerating her diet. She was alert and oriented to person only. But pleasant and cooperative. Status at Discharge Overall status at discharge: patient is progressing back to baseline Time Spent with Patient Time attestation: Total time spent providing and/or coordinating discharge services: Exam Narrative: Exam Narrative: HEENT: EOMI, PERRL, pharyngeal mucosa pink and intact NECK: No JVD, adenopathy, or thyromegaly CHEST: Scattered mild rhonchi HEART: NL S1/S2, regular, no murmur ABDOMEN: BS+, soft, nontender, no mass, no bruits EXTREMITIES: No cyanosis, edema, or clubbing NEUROLOGIC: CN intact and symmetric to inspection. MUSCULOSKELETAL: Tone and strength symmetric. PSYCH: Alert. Oriented to person only but pleasant and coopertive DS: Data Data Completed and Pending Labs on day of discharge: Labs from last 24 hours 01/02/20 01/02/20 05:57 05:57 WBC 5.3 RBC 3.36 L Hgb 11.1 L Hct 33.8 L MCV 100.6 H MCH 33.0 MCHC 32.8 RDW 13.9 Plt Count 147 L MPV 11.4 H Sodium 135 L Potassium 4.3 Chloride 101 Carbon Dioxide 32 H BUN 21 H Creatinine 0.60 L Estim Creat Clear Calc 53 Estimated GFR > 60 Glucose 83 Calcium 8.2 L Preliminary micro results at discharge 12/28/19 08:30 Blood
== END 2020-01-02 16:46 | DRG 193 ==
LOC: ANHED 09:24 → ANH3MEDSUR 09:31
PROVIDERS: Internal Medicine; Nurse Practitioner; Admitting Provider Family Medicine; Emergency Provider Emergency Medicine; Visit Provider Internal Medicine
DX: J18.9 Pneumonia, unspecified organism (principal); J96.21 Acute and chronic respiratory failure with hypoxia; J44.0 Chronic obstructive pulmonary disease with (acute) lower respiratory infection; F03.90 Unspecified dementia, unspecified severity, without behavioral disturbance, psychotic disturbance, mood disturbance, and anxiety; Z99.81 Dependence on supplemental oxygen; Z66 Do not resuscitate; I48.91 Unspecified atrial fibrillation; Z79.01 Long term (current) use of anticoagulants; Z85.118 Personal history of other malignant neoplasm of bronchus and lung; M81.0 Age-related osteoporosis without current pathological fracture; E03.9 Hypothyroidism, unspecified; E78.5 Hyperlipidemia, unspecified; F41.9 Anxiety disorder, unspecified; Z98.41 Cataract extraction status, right eye; Z98.42 Cataract extraction status, left eye; Z87.891 Personal history of nicotine dependence
CPT/HCPCS: 36415; 36600; 71046; 80048; 80053; 82375; 82607; 82805; 83050; 83605; 83880; 84443; 85025; 85027; 87040; 87081; 87804; 93005; 93306; 94640; 96361; 96365; 96375; 99285; A9270; J0456; J0696; J2060; J2930; J7030; J7512

== ENCOUNTER 2020-06-01 20:08 | Emergency (ER) | payer MEDICARE, OTHER, SELFPAY ==
--- NOTE | ~2020-06-01 | XR_ITS ---
EXAMINATION: XR chest 1V portable EXAM DATE: 06/01/2020 20:58 INDICATION: Acute stroke, right-sided weakness. Facial droop. Confusion and cough. TECHNIQUE: Portable AP frontal chest x-ray was obtained. Comparison is made to prior examination from 01/02/2020. FINDINGS: The cardiac silhouette is enlarged. There is small to moderate left pleural effusion with a djacent airspace disease at least partly atelectasis. Can't exclude underlying pneumonia or cancer. R ight lung is clear. There is aortic arteriosclerosis. The bones are osteopenic. There are bony degen erative changes. IMPRESSION: 1. Small to moderate left pleural effusion, adjacent atelectasis. 2. Can't exclude underlying pneumonia or cancer. 3. Cardiomegaly. Reviewed, dictated and finalized at location A.
--- NOTE | ~2020-06-01 | CT_ITS ---
EXAMINATION: CT brain wo con EXAM DATE: 06/01/2020 20:54 INDICATION: Right-sided hemiparesis, speech impairment. Right facial droop and right arm drift. TECHNIQUE: Spiral CT of the head was performed without contrast. Axial, coronal and sagittal images were reviewed. The dose-length product (DLP) for this examination was 605.33 mGy-cm. The exposure w as tailored according to patient size, and iterative reconstruction (ASIR) was used as additional dos e reduction technique. There is no prior study for comparison. FINDINGS: There is large region of edema within the left frontoparietal lobe white matter. Appearance s suspicious for vasogenic edema from underlying mass given that the ordoñez-white junction appears pres erved. A contrast enhanced CT or MRI examination should be obtained. No acute intracranial hemorrhage. No extra-axial collections or obstructive hydrocephalus. There is m ild atrophy and microangiopathy. There is nearly completely opacified frontal ethmoid and sphenoid si nuses, could have acute sinusitis. Left-sided cataract surgery. IMPRESSION: 1. Large region of edema in left frontoparietal lobe, appearance more consistent with edema from unde rlying mass than acute infarction. Clinical correlation and recommend contrast-enhanced MRI or CT. 2. Extensive sinus opacity, sinusitis. Reviewed, dictated and finalized at location A. IMPRESSION: 1. Large region of edema in left frontoparietal lobe, appearance more consisten t with edema from underlying mass than acute infarction. Clinical correlation a nd recommend contrast-enhanced MRI or CT. 2. Extensive sinus opacity, sinusitis.
[2020-06-01 20:14] VITALS: BP 125/82; PULSE 85; RESP 18; TEMP 36.7; O2SAT 98
--- NOTE | 2020-06-01 20:21 | ECG_ITS ---
Measurements Intervals [place] Rate: 77 P: 99 WI: 160 QRS: 79 QRSD: 89 T: 30 QT: 373 QTc: 424 Interpretive Statements SINUS RHYTHM POSSIBLE LEFT ATRIAL ENLARGEMENT INCOMPLETE RIGHT BUNDLE BRANCH BLOCK BASELINE WANDER- I, II BORDERLINE ECG Electronically Signed On 06-02-2020 7:03:51 CDT by Jeremy Samuel D.O.
--- NOTE | 2020-06-01 20:23 | ED.GENADULT ---
HPI - General Adult General Chief complaint: Unspecified Stated complaint: weakness Time Seen by Provider: 06/01/20 20:09 Source: EMS History of Present Illness HPI narrative: 79 years old white female, fdc, brought to the emergency room because the staff at the fdc noticed that patient unable to get the words out around 3?4 PM today. Which is 4-1/2-5 hours prior to arrival. Patient is comfort measures only patient usually oriented to her name and age and usually walks without medical billing assistant. Patient is allergic to penicillin, currently on Eliquis History of COPD, chronic respiratory failure, atrial fibrillation, dementia, hypothyroidism. Currently patient on home oxygen as needed, on arrival to the emergency room patient is on 3 L. Related Data Home Medications Medication Instructions Recorded Confirmed Adult One Daily Multivitamin 1 mg PO DAILY 12/28/19 12/28/19 Eliquis 5 mg PO BID 12/28/19 12/28/19 Vitamin D3 8,000 unit PO DAILY 12/28/19 12/28/19 acetaminophen 650 mg PO Q4H PRN 12/28/19 12/28/19 albuterol sulfate 2.5 mg INHALATION Q4H PRN 12/28/19 12/28/19 atorvastatin 10 mg PO DAILY 12/28/19 12/28/19 budesonide-formoterol [Symbicort] 2 puff INHALATION Q12H 12/28/19 12/28/19 buspirone 7.5 mg PO BID PRN 12/28/19 12/28/19 calcium carbonate-vitamin D3 400 tablet PO DAILY 12/28/19 12/28/19 [Calcium 600 + D(3)] dextromethorphan-guaifenesin 10 ml PO Q4-8H PRN 12/28/19 12/28/19 famotidine 20 mg PO BID 12/28/19 12/28/19 fluticasone propionate See Rx Instructions .ROUTE .COMPLEX 12/28/19 12/28/19 ipratropium-albuterol 3 ml INHALATION Q8H 12/28/19 12/28/19 levothyroxine 112 mcg PO DAILY 12/28/19 12/28/19 melatonin 3 mg PO HS 12/28/19 12/28/19 metoprolol tartrate 12.5 mg PO BID 12/28/19 12/28/19 montelukast 10 mg PO DAILY 12/28/19 12/28/19 simethicone [Gas-X Extra Strength] 250 mg PO DAILY 12/28/19 12/28/19 quetiapine 50 mg PO BID 06/01/20 trazodone 25 mg PO HS 06/01/20 Allergies Allergy/AdvReac Type Severity Reaction Status Date / Time alendronate sodium Allergy Unknown Verified 12/28/19 08:08 [From Fosamax] aspirin Allergy Unknown Verified 12/28/19 08:08 flunisolide [From Aerobid] Allergy Unknown Verified 12/28/19 08:08 levofloxacin Allergy Unknown Verified 12/28/19 08:08 Penicillins Allergy Unknown Verified 12/28/19 08:08 Review of Systems Review of Systems: ROS unobtainable: Yes unobtainable due to mental status PMFSH Past Medical History Medical History Afib Anxiety COPD (chronic obstructive pulmonary disease) Dementia Hyperlipidemia Hypothyroid Lung cancer Osteoporosis Surgical History Surgical History H/O bilateral cataract extraction Family History Family History Father CAD (coronary artery disease) Mother CAD (coronary artery disease) Son CAD (coronary artery disease) Sibling CAD (coronary artery disease) Other Unknown family medical history Social History Social History Social History: According to her [facility] records patient's date of admission was 10/28/2019. However the patient still believes that she is living in her home in [facility]. She is . She stated she had 4 sons but 1 of coronary artery disease. Patient slough she stop smoking about a year and half ago. She started smoking when she was 19 years old. At least a pack a cigarettes a day. No alcohol or illicit drugs. It is listed on her chart from [place] that she is . 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 Smoking status: Former smoker Alcohol intake: never Substance use: never Gender identity (if verbalized by the patient): Female Spiritual care concerns: No Agree to blood products: Yes Exam Narrative:
[2020-06-01 20:42] LABS: Alveolar/Arterial O2 Gradient 30.2 mmHg; Base Excess ABG -0.4 mEq/l (+/-2.0); Carboxyhemoglobin 0.3 % THb (0-2.0); Device ROOM AIR; Fractional Inspired Oxygen 21 %; HCO3 ABG 23.6 mEq/l (22.0-26.0); Methemoglobin ABG 0.3 %THb (0-1.5); Modified Allen's Test Pass; Oxygen Content ABG 16.6 %vol (16.0-22.0); Oxygen Saturation ABG 95.6 % (95.0-100.0); Oxyhemoglobin 94.1 % THb (90.0-100.0); PCO2 ABG 36.6 mmHg (35.0-45.0); PO2 ABG 75.7 mmHg (80.0-100.0); Reduced Hemoglobin 5.3 %THb (0-5.0); Site Drawn RIGHT RADIAL; Total Hemoglobin 12.5 g/dL (12.0-18.0); pH ABG 7.428 (7.350-7.450)
[2020-06-01 21:24] LABS: Basophils Absolute Auto 0.1 K/mm3 (0.0-0.1); Basophils Percent Auto 1.2 % (0.2-1.2); Eosinophils Absolute Auto 0.9 K/mm3 (0-0.3); Eosinophils Percent Auto 14.2 % (0-4.4); Hemoglobin 11.7 g/dL (12.0-15.0); Immature Granulocyte Absolute 0.01 K/mm3 (0.00-0.031); Immature Granulocyte Percent A 0.2 % (0-0.5); Lymphocytes Absolute Auto 1.25 K/mm3 (0.9-3.2); Lymphocytes Percent Auto 19.3 % (18.3-44.2); Mean Corpuscular HGB Conc 33.4 g/dl (32-36); Mean Corpuscular Hemoglobin 32.4 pg (26-34); Mean Platelet Volume 10.8 fl (7.4-10.4); Monocytes Absolute Auto 0.9 K/mm3 (0.1-0.6); Monocytes Percent Auto 13.9 % (2.6-8.5); Neutrophils Absolute Auto 3.3 K/mm3 (1.3-6.7); Neutrophils Percent Auto 51.2 % (45.5-73.1); Platelet Count Result 212 k/mm3 (150-375); Red Blood Count 3.61 M/mm3 (4.2-5.4); Red Cell Distribution Width 15.8 % (11.5-14.5); White Blood Count 6.5 K/mm3 (4.5-10.0)
[2020-06-01 21:34] LABS: INR 1.1; Partial Thromboplastin Time 26.5 SECONDS (22.3-36.8); Prothrombin Time 14.3 Seconds (11.1-14.7)
[2020-06-01 21:38] LABS: Alanine Aminotransferase 19 U/L (4-35); Albumin Level 3.8 g/dL (3.5-5.1); Alkaline Phosphatase 58 U/L (38-126); Anion Gap 10.3 mmol/L (7-16); Aspartate Amino Transferase 30 U/L (14-36); Bilirubin,Total < 0.1 mg/dL (0.2-1.3); Blood Urea Nitrogen 24 mg/dL (7-17); Carbon Dioxide 27 mmol/L (22-30); Chloride 105 mmol/L (98-107); Estimated CRCL calculation 41 ml/min; Estimated Glomerular Filt Rate > 60; Glucose 77 mg/dL (65-105); Potassium 4.3 mmol/L (3.4-5.0); Sodium 138 mmol/L (137-145)
[2020-06-01 21:50] LABS: Troponin I < 0.012 ng/mL (0.000-0.034)
[2020-06-01 23:00] VITALS: BP 142/82; PULSE 82; RESP 19; O2SAT 97
--- NOTE | 2020-06-01 23:44 | PC.NURSE ---
Called [facility] transport patient. ETA [phone]
--- NOTE | 2020-06-01 23:58 | PC.NURSE ---
called [facility] to request transport. [facility] declined
[2020-06-02 00:31] VITALS: BP 143/79; PULSE 78; RESP 18; O2SAT 96
--- NOTE | 2020-06-02 02:28 | PC.NURSE ---
Pt placed on bed alarm after waking up from sleep and pulling out IV. Pt repositioned in bed and reorientated that she is at the hospital. Pt states she was dreaming and did not remember pulling out IV. Pt denies any complaints at this time. VSS. RN will continue to monitor.
[2020-06-02 02:30] VITALS: BP 120/73; PULSE 79; RESP 17; O2SAT 94
--- NOTE | 2020-06-02 02:58 | PC.NURSE ---
[facility] called to update ETA to [phone]
[2020-06-02 03:35] VITALS: BP 130/83; PULSE 77; RESP 20; O2SAT 100
[2020-06-02 04:35] VITALS: BP 109/66; PULSE 76; RESP 21; O2SAT 98
--- NOTE | 2020-06-02 05:37 | PC.NURSE ---
[facility] called to update ETA to [phone]
[2020-06-02 05:59] VITALS: BP 110/88; PULSE 84; RESP 19; TEMP 36.8; O2SAT 100
== END 2020-06-02 06:00 ==
PROVIDERS: Emergency Provider Emergency Medicine
DX: D49.6 Neoplasm of unspecified behavior of brain (principal); D49.1 Neoplasm of unspecified behavior of respiratory system; Z66 Do not resuscitate; I48.91 Unspecified atrial fibrillation; Z79.01 Long term (current) use of anticoagulants; F41.9 Anxiety disorder, unspecified; J44.9 Chronic obstructive pulmonary disease, unspecified; E03.9 Hypothyroidism, unspecified
CPT/HCPCS: 36415; 36600; 70450; 71045; 80053; 82375; 82805; 83050; 84484; 85025; 85610; 85730; 93005; 99284

== ENCOUNTER 2020-07-14 13:38 | Emergency (ER) | payer MEDICARE, OTHER, SELFPAY ==
[2020-07-14] VITALS (7 sets, daily range): BP systolic 71–104; BP diastolic 44–64; PULSE 90–119; RESP 18–31; TEMP 36.4; O2SAT 90–100
--- NOTE | ~2020-07-14 | XR_ITS ---
EXAMINATION: XR chest 1V portable EXAM DATE: 07/14/2020 14:07 INDICATION: Shortness of air. TECHNIQUE: Portable AP frontal chest x-ray was obtained. Comparison is made to prior examination from 06/01/2020, 12/28/2019. FINDINGS: Chronic small to moderate left pleural effusion, possibly with loculations. Difficult to ex clude underlying cancer. Evidence of left lung volume loss, possible left hemidiaphragm elevation. Si milar findings on previous x-ray. Right lung is clear. The bones are osteopenic. There are bony dege nerative changes. IMPRESSION: Chronic small to moderate left pleural effusion, adjacent airspace disease at least partl y atelectasis but underlying cancer not excludable. Consider pulmonary or chest CT with contrast for further evaluation. Reviewed, dictated and finalized at location [facility]. IMPRESSION: Chronic small to moderate left pleural effusion, adjacent airspace disease at least partly atelectasis but underlying cancer not excludable. Consi william pulmonary or chest CT with contrast for further evaluation.
--- NOTE | 2020-07-14 14:12 | ECG_ITS ---
Measurements Intervals [place] Rate: 123 P: 94 MA: 159 QRS: 94 QRSD: 90 T: 77 QT: 333 QTc: 477 Interpretive Statements SINUS TACHYCARDIA RIGHT AXIS DEVIATION INCOMPLETE RIGHT BUNDLE BRANCH BLOCK BASELINE WANDER- II, III, AVR, AVL, AVF, V4-V6 ABNORMAL ECG Electronically Signed On 07-14-2020 15:08:35 CDT by Jeremy Samuel D.O.
[2020-07-14] MEDS: SODIUM CHLORIDE 0.9% IV 1,000 ML 999 ML IV CONT (14:25)
--- NOTE | 2020-07-14 14:27 | ED.SEIZURE ---
HPI - Seizure General Chief Complaint: Seizure Stated Complaint: SEIZURE Time Seen by Provider: 07/14/20 13:41 History of Present Illness HPI Narrative: Patient is a 80-year-old female who presents the ER seizing. Patient has history of metastatic lung cancer. She is currently on hospice. She began seizing at her long-term. They gave her 500 mg of Keppra per the orders of the hospice physician. Seizure lasted over 10 minutes so they called EMS as they could not administer any other medications to abort the seizure. EMS gave the patient 4 mg of Versed intranasally which did not help. They then administered an additional 2 mg of Versed IV and patient seizing ceased. Related Data Home Medications Medication Instructions Recorded Confirmed acetaminophen 650 mg PO Q4H PRN 12/28/19 12/28/19 albuterol sulfate 2.5 mg INHALATION Q4H PRN 12/28/19 12/28/19 budesonide-formoterol [Symbicort] 2 puff INHALATION Q12H 12/28/19 12/28/19 famotidine 20 mg PO BID 12/28/19 12/28/19 fluticasone propionate [Flonase See Rx Instructions .ROUTE .COMPLEX 12/28/19 12/28/19 Allergy Relief] ipratropium-albuterol 3 ml INHALATION Q8H 12/28/19 12/28/19 levothyroxine 112 mcg PO DAILY 12/28/19 12/28/19 melatonin 3 mg PO HS 12/28/19 12/28/19 metoprolol tartrate 12.5 mg PO BID 12/28/19 12/28/19 simethicone [Gas-X Extra Strength] 250 mg PO DAILY 12/28/19 12/28/19 quetiapine 50 mg PO BID 06/01/20 dextromethorphan-guaifenesin 10 ml PO Q4-6H PRN 07/14/20 [Robafen DM Cough-Chest Congest] prednisone 5 mg PO 07/14/20 Allergies Allergy/AdvReac Type Severity Reaction Status Date / Time alendronate sodium Allergy Unknown Verified 07/14/20 14:43 [From Fosamax] aspirin Allergy Unknown Verified 07/14/20 14:43 flunisolide [From Aerobid] Allergy Unknown Verified 07/14/20 14:43 levofloxacin Allergy Unknown Verified 07/14/20 14:43 Penicillins Allergy Unknown Verified 07/14/20 14:43 Review of Systems Review of Systems: ROS unobtainable: Yes unobtainable due to medical condition PMFSH Social History Social History Social History: According to her [facility] records patient's date of admission was 10/28/2019. However the patient still believes that she is living in her home in [facility]. She is . She stated she had 4 sons but 1 of coronary artery disease. Patient slough she stop smoking about a year and half ago. She started smoking when she was 19 years old. At least a pack a cigarettes a day. No alcohol or illicit drugs. It is listed on her chart from [place] that she is . 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 Smoking status: Former smoker Alcohol intake: never Substance use: never Gender identity (if verbalized by the patient): Female Spiritual care concerns: No Agree to blood products: Yes Exam Narrative: Exam Narrative: GENERAL: Chronically ill-appearing, thin, and in no acute distress. HEAD: Normocephalic, atraumatic. EYES: PERRL. ENT: Mucous membranes moist. CHEST: Diminished/coarse lung sounds left side, no respiratory distress. HEART: Tachycardic and regular. Normal peripheral pulses. ABDOMEN: Soft, nontender, nondistended. EXTREMITIES: Normal range of motion. No edema. SKIN: Warm, dry, no rash. NEURO: Postictal/sedated. Not initially responding to pain or commands. 10 minutes later patient moving arms and lower extremities to position of comfort. Course Course Emergency Course: Discussed case with the hospitalist Dr. Golden hospice care. Recommend starting patient on 500 mg twice daily of Keppra and to give a IV load of 500 mg. No additional recommendations for benzodiazepines at the long-term. I have also contacted the patient's son who is aware of the patient's condition. Discussed that blood pressure is low and she has received some IV fluid. Blood pressure may be related to the pat
[2020-07-14] MEDS: levETIRAcetam 500MG/NACL 100ML 500 MG/100 ML BAG 400 MG IVPB (16:35)
--- NOTE | 2020-07-14 18:40 | PC.NURSE ---
EMS called for transport back to detention. ETA 190
== END 2020-07-14 19:06 ==
PROVIDERS: Emergency Provider Emergency Medicine
DX: R56.9 Unspecified convulsions (principal); C34.90 Malignant neoplasm of unspecified part of unspecified bronchus or lung
CPT/HCPCS: 71045; 93005; 96361; 96365; 99284; J1953; J7030

== ENCOUNTER 2020-07-17 04:05 | Emergency (ER) | payer MEDICARE, OTHER, SELFPAY ==
--- NOTE | ~2020-07-17 | CT_ITS ---
EXAMINATION: CT brain wo con DATE: 07/17/2020 05:38 INDICATION: Fall. TECHNIQUE: Computed tomography (CT) of the head was performed without intravenous contrast. The mA wa s adjusted according to patient size. Iterative reconstruction technique was employed. Exam dose: 68 1.00 mGy-cm total exam DLP. COMPARISON: 06/01/2020 CT brain FINDINGS: Left vertebral artery, basilar artery and prominent bilateral carotid siphon and right supr aclinoid internal carotid artery calcifications. Again noted is prominent diminished attenuation of the left frontoparietal area. No apparent intracranial mass lesion is noted on this limited noncontrast examination. No intracrania l hemorrhage, midline shift or mass effect is noted otherwise. No subdural or epidural hematoma. No fracture or bone destruction of the cranial vault. There is extensive soft tissue opacification of frontal, ethmoid, sphenoid and to a lesser extent maxillary sinuses. The mastoid air cells are reyna lly developed and aerated. IMPRESSION: Persistent prominent encephalomalacia in the left frontal parietal area; consider MRI of the brain for further evaluation No acute intracranial finding or significant change since 06/01/2020 Extensive paranasal sinus opacification Reviewed, dictated and finalized at [facility]. Reviewed, dictated and finalized at location A.
--- NOTE | ~2020-07-17 | XR_ITS ---
XR hip BI 2V w AP pelvis DATE: 07/17/2020 06:10 INDICATION: Fall TECHNIQUE: AP pelvis. AP and lateral views of each COMPARISON: None FINDINGS: Osteopenia. No pelvic fracture or bone destruction is evident. The pubic symphysis and sacroiliac joints are inta ct. Hip joint spaces are symmetric and relatively preserved. No hip fracture or dislocation or bone d estruction. There is extensive abdominal aortic and iliac and femoral artery calcification. IMPRESSION: Osteopenia; no pelvic or hip fracture detected Reviewed, dictated and finalized at location A.
--- NOTE | ~2020-07-17 | CT_ITS ---
EXAMINATION: CT cervical spine wo con DATE: 07/17/2020 05:37 INDICATION: Fall. Head and neck injury. TECHNIQUE: Computed tomography (CT) of the cervical spine was performed without intravenous contrast. Automated exposure control and iterative reconstruction technique were employed. Exam dose: 127.77 mGy-cm total exam DLP. COMPARISON: None FINDINGS: C1 and C2 are normally aligned and the odontoid process is intact. No fracture or dislocati on or locked facet or prevertebral soft tissue swelling. There is slight anterolisthesis at C2-3. There is severe degenerative disc disease at C3-4 and C4-5 mild posterior subluxation.. There is severe degenerative disc disease at C5-6 and C6-7. There is mild anterolisthesis at C7-T1. There is degenerative change at the apophyseal joints throughout the cervical spine, as well as uncov ertebral joint spurring at C3-4 through C6-7. IMPRESSION: Extensive degenerative changes; no fracture or dislocation Reviewed, dictated and finalized at [facility]. Reviewed, dictated and finalized at location A.
--- NOTE | ~2020-07-17 | XR_ITS ---
XR humerus RT DATE: 07/17/2020 06:10 INDICATION: Fall. Right arm injury, pain TECHNIQUE: 2 views COMPARISON: None FINDINGS: Osteopenia. No fracture, dislocation, periosteal reaction or bone destruction. Normal align ment at the right acromioclavicular, glenohumeral and elbow joints. IMPRESSION: No fracture or dislocation Reviewed, dictated and finalized at location A. IMPRESSION: No fracture or dislocation
[2020-07-17 04:06] VITALS: BP 99/54; PULSE 96; RESP 16; TEMP 36.3; O2SAT 94
[2020-07-17 04:15] VITALS: BP 118/69; PULSE 92; RESP 18; O2SAT 94
[2020-07-17 06:00] VITALS: BP 112/68; PULSE 78; RESP 16; O2SAT 96
--- NOTE | 2020-07-17 06:20 | PC.NURSE ---
report given to Yaneth at [facility]>
--- NOTE | 2020-07-17 06:30 | ED.FALL ---
HPI - Fall General Chief Complaint: Fall Stated Complaint: FALL Time Seen by Provider: 07/17/20 04:29 Source: EMS Mode of arrival: EMS Limitations: clinical condition History of Present Illness HPI Narrative: This patient is a 80 year old female with history of Brain CA on hospice who presents from [facility] for evaluation of fall. EMS states patient was found after falling out of bed. Patient has some aphasia and right side weakness chronically so history is limited. She was found to have right forehead hematoma and possible right arm injury. She was sent from [facility] for evaluation even though she is [facility] hosp[facility]. Related Data Home Medications Medication Instructions Recorded Confirmed acetaminophen 650 mg PO Q4H PRN 12/28/19 12/28/19 albuterol sulfate 2.5 mg INHALATION Q4H PRN 12/28/19 12/28/19 budesonide-formoterol [Symbicort] 2 puff INHALATION Q12H 12/28/19 12/28/19 famotidine 20 mg PO BID 12/28/19 12/28/19 fluticasone propionate [Flonase See Rx Instructions .ROUTE .COMPLEX 12/28/19 12/28/19 Allergy Relief] ipratropium-albuterol 3 ml INHALATION Q8H 12/28/19 12/28/19 levothyroxine 112 mcg PO DAILY 12/28/19 12/28/19 melatonin 3 mg PO HS 12/28/19 12/28/19 metoprolol tartrate 12.5 mg PO BID 12/28/19 12/28/19 simethicone [Gas-X Extra Strength] 250 mg PO DAILY 12/28/19 12/28/19 quetiapine 50 mg PO BID 06/01/20 dextromethorphan-guaifenesin 10 ml PO Q4-6H PRN 07/14/20 [Robafen DM Cough-Chest Congest] prednisone 5 mg PO 07/14/20 Allergies Allergy/AdvReac Type Severity Reaction Status Date / Time alendronate sodium Allergy Unknown Verified 07/14/20 14:43 [From Fosamax] aspirin Allergy Unknown Verified 07/14/20 14:43 flunisolide [From Aerobid] Allergy Unknown Verified 07/14/20 14:43 levofloxacin Allergy Unknown Verified 07/14/20 14:43 Penicillins Allergy Unknown Verified 07/14/20 14:43 Review of Systems Review of Systems: ROS unobtainable: Yes unobtainable due to medical condition PMFSH Past Medical History Medical History Afib Anxiety COPD (chronic obstructive pulmonary disease) Dementia Hyperlipidemia Hypothyroid Lung cancer Osteoporosis Surgical History Surgical History H/O bilateral cataract extraction Social History Social History Social History: According to her [facility] records patient's date of admission was 10/28/2019. However the patient still believes that she is living in her home in [facility]. She is . She stated she had 4 sons but 1 of coronary artery disease. Patient slough she stop smoking about a year and half ago. She started smoking when she was 19 years old. At least a pack a cigarettes a day. No alcohol or illicit drugs. It is listed on her chart from [place] that she is . 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 Smoking status: Former smoker Alcohol intake: never Substance use: never Gender identity (if verbalized by the patient): Female Spiritual care concerns: No Agree to blood products: Yes Exam Const: General: no acute distress Other: oriented to person HENMT: Head: normocephalic Eyes: EOM: EOMs intact bilaterally Chest: Chest palpation & inspection: normal inspection of the chest Resp: Effort & Inspection: normal respiratory effort and no retractions Auscultation: clear to auscultation bilaterally Cardio: Rate: regular rate Rhythm: regular rhythm Heart sounds: no murmurs GI: GI Palp: Yes Soft to palpation, No Firmness to palpation present (GI), No Tenderness to palpation present (GI) and No Guarding due to palpation present (GI) Neuro: Other: right arm contracture, right hemiplegia with slow slurred speech Extrem: General: edema Course Reevaluation(s) Reevaluation #1:
[2020-07-17 07:30] VITALS: BP 110/55; PULSE 70; RESP 18; O2SAT 96
== END 2020-07-17 07:30 | disposition hospice, home (50) ==
PROVIDERS: Emergency Provider General Practice
DX: S00.83XA Contusion of other part of head, initial encounter (principal); I48.91 Unspecified atrial fibrillation; F41.9 Anxiety disorder, unspecified; J44.9 Chronic obstructive pulmonary disease, unspecified; F03.90 Unspecified dementia, unspecified severity, without behavioral disturbance, psychotic disturbance, mood disturbance, and anxiety; E78.5 Hyperlipidemia, unspecified; E03.9 Hypothyroidism, unspecified; Z85.118 Personal history of other malignant neoplasm of bronchus and lung; M81.0 Age-related osteoporosis without current pathological fracture; Z98.42 Cataract extraction status, left eye; Z98.41 Cataract extraction status, right eye; Z87.891 Personal history of nicotine dependence; R47.01 Aphasia; R53.1 Weakness; W06.XXXA Fall from bed, initial encounter
CPT/HCPCS: 70450; 72125; 73060; 73521; 99284